=== PATIENT | male | born 1990 | race Caucasian/White ===

== ENCOUNTER 2025-07-02 10:30 | Inpatient (IN) | payer OTHER ==
[2025-07-02] VITALS (9 sets, daily range): BP systolic 140–153; BP diastolic 91–110; TEMP 97.9–98.8; O2SAT 95–100
[~2025-07-02] VITALS: Ht 190.5 cm; Wt 99.7 kg
[2025-07-02 11:12] LABS: PLATELET COUNT (AUTO) 183 K/uL (150-450); RED BLOOD CELL COUNT(AUTO) 3.63 MIL/uL (4.5-6.0); RED CELL DISTRIBUTION WIDTH 13.9 % (11.5-15.0); WHITE BLOOD COUNT (AUTO) 8.5 K/uL (4.3-11.0)
[2025-07-02 11:25] LABS: ASPARTATE AMINOTRANSFERASE 219.0 U/L (15-37); CALCIUM, SERUM 8.9 mg/dL (8.5-10.1); CREATININE 0.5 mg/dL (0.6-1.3); SODIUM SERUM 135.0 mmol/L (136-145); TOTAL PROTEIN, SERUM 8.2 g/dL (6.4-8.2); UREA NITROGEN, BLOOD 2.0 mg/dL (7-18)
[2025-07-02 11:31] LABS: INR 1.48 (0.91-1.10)
[2025-07-02] MEDS ORDERED: ONDANSETRON HCL/PF 4 MG/2 ML VIAL IVP PRN (13:30)
[2025-07-02] MEDS: SPIRONOLACTONE 25 MG TABLET PO SCH (13:59)
[2025-07-02] MEDS: CHLORDIAZEPOXIDE HCL 25 MG CAPSULE PO SCH (14:00)
[2025-07-02] MEDS: FOLIC ACID 1 MG TABLET PO SCH (14:00)
[2025-07-02] MEDS: THIAMINE HCL 100 MG TABLET PO SCH (14:01)
[2025-07-02] MEDS: LORAZEPAM INJ 2 MG/ML VIAL IV PRN (14:52)
[2025-07-02] MEDS ORDERED: IOHEXOL-350 100 ML VIAL IV ONE (15:49)
[2025-07-02] MEDS ORDERED: IV NS 0.9% 250 ML IV ONE (15:50)
[2025-07-02] MEDS: LORAZEPAM INJ 2 MG/ML VIAL IM PRN (21:42)
[2025-07-03 06:36] LABS: PLATELET COUNT (AUTO) 150 K/uL (150-450); RED BLOOD CELL COUNT(AUTO) 3.41 MIL/uL (4.5-6.0); RED CELL DISTRIBUTION WIDTH 13.9 % (11.5-15.0); WHITE BLOOD COUNT (AUTO) 6.3 K/uL (4.3-11.0)
[2025-07-03 06:49] LABS: ASPARTATE AMINOTRANSFERASE 170.0 U/L (15-37); CALCIUM, SERUM 8.6 mg/dL (8.5-10.1); CREATININE 0.4 mg/dL (0.6-1.3); PHOSPHORUS 3.2 mg/dL (2.5-4.9); SODIUM SERUM 135.0 mmol/L (136-145); TOTAL PROTEIN, SERUM 7.1 g/dL (6.4-8.2); UREA NITROGEN, BLOOD 3.0 mg/dL (7-18)
[2025-07-03 06:53] LABS: LDL 156.0 mg/dL (0-99)
[2025-07-03 08:00] VITALS: BP 133/96; TEMP 98.6; O2SAT 96
[2025-07-03 16:00] VITALS: BP 139/98; TEMP 99.1; O2SAT 97
[2025-07-03 20:00] VITALS: BP 147/104; TEMP 99; O2SAT 96
[2025-07-03 20:35] LABS: PROTEIN, BODY FLUID 3.0 G/DL
[2025-07-03 20:39] LABS: APPEARANCE,SPUN,BODY FLUID CLEAR (CLEAR)
[2025-07-04 01:11] LABS: AFP, TUMOR MARKER 4.5 ng/mL (0.0-6.9); CARCINOEMBRYONIC ANTIGEN (CEA) 1.9 ng/mL (0.0-4.7)
[2025-07-04 01:35] LABS: WBC, BODY FLUID 79 /cu. mm. (0-200)
[2025-07-04 06:33] LABS: TOTAL VOLUME,BODY FLUID 2200 mL
[2025-07-04 06:34] LABS: MONOCYTES,BODY FLUID 2 %
[2025-07-04 06:51] LABS: PLATELET COUNT (AUTO) 163 K/uL (150-450); RED BLOOD CELL COUNT(AUTO) 3.66 MIL/uL (4.5-6.0); RED CELL DISTRIBUTION WIDTH 14.1 % (11.5-15.0); WHITE BLOOD COUNT (AUTO) 6.7 K/uL (4.3-11.0)
[2025-07-04 06:55] LABS: INR 1.78 (0.91-1.10)
[2025-07-04 07:22] LABS: ASPARTATE AMINOTRANSFERASE 155.0 U/L (15-37); TOTAL PROTEIN, SERUM 7.1 g/dL (6.4-8.2)
[2025-07-04 07:32] LABS: CALCIUM, SERUM 9.1 mg/dL (8.5-10.1); CREATININE 0.5 mg/dL (0.6-1.3); PHOSPHORUS 3.4 mg/dL (2.5-4.9); SODIUM SERUM 135.0 mmol/L (136-145); UREA NITROGEN, BLOOD 2.0 mg/dL (7-18)
[2025-07-04 08:11] LABS: HBSAG SCREEN Negative (Negative); HEPATITIS A AB, IgM Negative (Negative); HEPATITIS B CORE AB, IgM Negative (Negative)
[2025-07-04 08:44] VITALS: BP 135/102; TEMP 98.4; O2SAT 98
[2025-07-04 16:12] VITALS: BP 131/90; TEMP 99.5; O2SAT 97
[2025-07-04 20:00] VITALS: BP 132/92; TEMP 100; O2SAT 100
[2025-07-05 06:07] LABS: PLATELET COUNT (AUTO) 145 K/uL (150-450); RED BLOOD CELL COUNT(AUTO) 3.77 MIL/uL (4.5-6.0); RED CELL DISTRIBUTION WIDTH 14.7 % (11.5-15.0); WHITE BLOOD COUNT (AUTO) 6.6 K/uL (4.3-11.0)
[2025-07-05 06:19] LABS: ASPARTATE AMINOTRANSFERASE 133.0 U/L (15-37); CALCIUM, SERUM 8.5 mg/dL (8.5-10.1); CREATININE 0.4 mg/dL (0.6-1.3); PHOSPHORUS 3.8 mg/dL (2.5-4.9); SODIUM SERUM 133.0 mmol/L (136-145); TOTAL PROTEIN, SERUM 6.6 g/dL (6.4-8.2); UREA NITROGEN, BLOOD 3.0 mg/dL (7-18)
[2025-07-05 08:00] VITALS: BP 127/85; TEMP 98.4; O2SAT 99
[2025-07-05] MEDS: RIFAXIMIN 550 MG TABLET PO SCH (09:13)
[2025-07-05] MEDS ORDERED: SPIR25TA6 PO (11:05)
[2025-07-05] MEDS ORDERED: FOLI0.4T6 PO (11:51)
[2025-07-05] MEDS ORDERED: THIA100T74 PO (11:51)
== END 2025-07-05 15:46 | disposition home or self-care (01) | DRG 436 ==
LOC: ER 10:43 → MED 11:49
PROVIDERS: ADMIT Nurse Practitioner Acute Care
PROC: 0W9G3ZX Drainage of Peritoneal Cavity, Percutaneous Approach, Diagnostic (ICD-10-PCS; principal; 2025-07-03)
PROC: BF45ZZZ Ultrasonography of Liver (ICD-10-PCS; 2025-07-03)
DX: C78.7 Secondary malignant neoplasm of liver and intrahepatic bile duct (principal); E44.1 Mild protein-calorie malnutrition; E72.20 Disorder of urea cycle metabolism, unspecified; E87.1 Hypo-osmolality and hyponatremia; R16.2 Hepatomegaly with splenomegaly, not elsewhere classified; F10.10 Alcohol abuse, uncomplicated; D53.1 Other megaloblastic anemias, not elsewhere classified; Y90.9 Presence of alcohol in blood, level not specified; E80.6 Other disorders of bilirubin metabolism; R74.01 Elevation of levels of liver transaminase levels; F41.9 Anxiety disorder, unspecified; F32.A Depression, unspecified; E88.09 Other disorders of plasma-protein metabolism, not elsewhere classified; C80.1 Malignant (primary) neoplasm, unspecified; K76.0 Fatty (change of) liver, not elsewhere classified
CPT/HCPCS: 36415; 49083; 80048-TC; 80053-TC; 80061-TC; 80076-TC; 82105; 82140-TC; 82378; 83690-TC; 83735-TC; 84100-TC; 85025-TC; 85610-TC; 85730-TC; 86850-TC; 87070-TC; 89051-TC; G0378; J2060; J7050; Q9967